=== PATIENT | male | born 1955 | race Caucasian/White ===

== ENCOUNTER 2021-10-31 00:04 | Emergency (ER) | payer MEDICARE, OTHER ==
[~2021-10-31] VITALS: Ht 170.2 cm; Wt 127.0 kg
[~2021-10-31 00:04] MED LIST: BACTRIM DS1 TAB PO; CALCIUM 500/VITAMIN PO; CEPHALEXIN500 MG OR; LISINOPRIL20 M1 PO; LISINOPRIL5 MG OR; MORPHINE SUL100 MG OR; MORPHINE SUL30 M3 PO; OXYCODONE15 MG PO; OXYCODONE30 MG OR; PRILOSEC OTC20 MG PO; PRILOSEC10 MG OR; ROCEPHIN 1 GM1 GM IU; SILVER SULFA1 % TOP; VIT C/ACEROL500 M1 PO
[2021-10-31 00:33] VITALS: BP 95/77
[2021-10-31 01:08] LABS: URINE BLOOD DIPSTICK NEGATIVE (NEGATIVE); URINE COLOR YELLOW; URINE GLUCOSE - DIPSTICK NEGATIVE (NEGATIVE); URINE KETONE NEGATIVE (NEGATIVE)
[2021-10-31 01:12] LABS: URINE BILIRUBIN - DIPSTICK MODERATE (NEGATIVE)
[2021-10-31 01:13] LABS: URINE LEUK ESTERASE MODERATE (NEGATIVE); URINE NITRITE - DIPSTICK NEGATIVE (Negative); URINE PROTEIN - DIPSTICK NEGATIVE (NEG-TRACE)
[2021-10-31 01:16] LABS: URINE BACTERIA MANY hpf; URINE EPITHELIAL CELLS MODERATE EPI/hpf (0-FEW); URINE WBC 50-100 WBC/hpf (0-5)
[2021-10-31] MEDS ORDERED: ATORVASTATIN CA10 MG PO (01:17)
[2021-10-31] MEDS ORDERED: PREVAGEN EXTRA20 MG (01:18)
[2021-10-31] MEDS ORDERED: IS-ZC 50 50 MG1 TAB (01:20)
[2021-10-31] MEDS ORDERED: BAYER ASPIRIN E81 MG PO (01:20)
[2021-10-31] MEDS ORDERED: AZO STANDARD PO (01:20)
[2021-10-31] MEDS ORDERED: NOVOLOG MIX100 U/ML SC (01:22)
[2021-10-31] MEDS ORDERED: [UNRECOGNIZED DRUG - OTHER] (01:23)
[2021-10-31] MEDS ORDERED: KEFLEX500 MG PO (01:24)
== END 2021-10-31 02:00 | disposition home or self-care (01) ==
LOC: ED 00:04
PROVIDERS: Emergency Medicine
DX: N39.0 Urinary tract infection, site not specified (principal); I10 Essential (primary) hypertension; G82.20 Paraplegia, unspecified; B96.20 Unspecified Escherichia coli [E. coli] as the cause of diseases classified elsewhere

== ENCOUNTER 2022-01-10 14:31 | Emergency (ER) | payer MEDICARE, OTHER ==
[2022-01-10] VITALS (8 sets, daily range): BP systolic 135–170; BP diastolic 68–121
[~2022-01-10] VITALS: Ht 170.2 cm; Wt 127.0 kg
[~2022-01-10 14:31] MED LIST changes: +ATORVASTATIN CA10 MG PO; +AZO STANDARD PO; +BAYER ASPIRIN E81 MG PO; +IS-ZC 50 50 MG1 TAB; +KEFLEX500 MG PO; +NOVOLOG MIX100 U/ML SC; +PREVAGEN EXTRA20 MG; +[UNRECOGNIZED DRUG - OTHER]
[2022-01-10 15:16] LABS: HEMOGLOBIN 14.2 g/dl (14.0-18.0); IMMATURE GRANULOCYTES 0.3 % (0.0-5.0); MEAN CELL VOLUME 89.7 fL CALC (80.0-100.0); MEAN CORPUSCULAR HGB 31.8 pG CALC (26.0-32.0); MEAN CORPUSCULAR HGB CONC 35.5 g/dL CAL (32.0-36.0); NEUT# 12.57 thou/uL (1.82-7.42); RED BLOOD COUNT 4.46 mill/uL (4.70-6.10)
[2022-01-10 15:29] LABS: ALBUMIN 3.6 g/dL (3.2-5.0); BUN 9 mg/dL (8-23); BUN/CREATININE RATIO 17 (12-20 (CALC)); CARBON DIOXIDE 25 mmol/l (22-30); CHLORIDE 102 mmol/l (95-108); CREATININE 0.5 mg/dL (0.7-1.3); GFR FOR AFR.AMER. > 60 ML/MIN (>=60 (CALC)); GFR OTHER RACES > 60 ML/MIN (>=60 (CALC)); LIPASE 87 u/l (23-300); SODIUM 136 mmol/l (137-146); TOTAL PROTEIN 7.2 g/dL (6.3-8.2)
[2022-01-10 15:46] LABS: ALKALINE PHOSPHATASE 386 u/l (38-126); ANION GAP 12 (6-22 (CALC)); POTASSIUM 3.1 mmol/l (3.5-5.1); SGOT/AST 209 u/l (19-48)
[2022-01-10 15:53] LABS: URINE BLOOD DIPSTICK NEGATIVE (NEGATIVE); URINE COLOR BROWN; URINE GLUCOSE - DIPSTICK 100 mg/dL (NEGATIVE); URINE KETONE TRACE mg/dL (NEGATIVE); URINE LEUK ESTERASE TRACE (NEGATIVE); URINE PH 5.5 (4.5-8.0); URINE PROTEIN - DIPSTICK 30 mg/dL (NEG-TRACE); URINE SPECIFIC GRAVITY >=1.030
[2022-01-10 16:01] LABS: URINE BILIRUBIN - DIPSTICK LARGE (NEGATIVE); URINE NITRITE - DIPSTICK POSITIVE (Negative)
[2022-01-10 16:03] LABS: URINE BACTERIA RARE hpf; URINE TRANSITIONAL EPI. CELLS FEW hpf; URINE WBC 20-50 WBC/hpf (0-5)
== END 2022-01-10 20:32 | disposition short-term general hospital (02) ==
LOC: ED 14:31
PROVIDERS: Family Medicine
DX: K83.1 Obstruction of bile duct (principal); N39.0 Urinary tract infection, site not specified; B96.20 Unspecified Escherichia coli [E. coli] as the cause of diseases classified elsewhere; G82.20 Paraplegia, unspecified; I10 Essential (primary) hypertension; E78.00 Pure hypercholesterolemia, unspecified
CPT/HCPCS: Q9967

== ENCOUNTER 2024-04-25 12:59 | Emergency (ER) | payer MEDICARE, MEDICAID ==
[~2024-04-25] VITALS: Ht 170.2 cm; Wt 125.0 kg
[2024-04-25 13:20] VITALS: BP 113/95
[2024-04-25 14:58] VITALS: BP 113/95
== END 2024-04-25 15:15 | disposition home or self-care (01) ==
LOC: ED 12:59
DX: S92.354A Nondisplaced fracture of fifth metatarsal bone, right foot, initial encounter for closed fracture (principal); G82.20 Paraplegia, unspecified; I10 Essential (primary) hypertension; E78.00 Pure hypercholesterolemia, unspecified; V00.811A Fall from moving wheelchair (powered), initial encounter